=== PATIENT | female | born 1990 | race Caucasian/White ===

== ENCOUNTER 2024-03-22 14:33 | Emergency (ER) | payer MEDICAID, SELFPAY ==
--- NOTE | 2024-03-22 14:55 | PD.EDDENTL ---
ED Dental RME/HPI General Chief complaint: Dental/Oral/Throat Stated complaint: LOWER RIGHT GUM SWELLING/PAIN X 2 DAYS Time Seen by Provider: 03/22/24 14:37 Arrival date/time: 03/22/24 14:33 33-year-old female presents emergency department today complains of right lower dental pain ongoing x 2 days patient reports he has a follow-up appointment with dentist on Friday. Patient reports no fever nausea or vomiting no difficulty swallowing or breathing Limitations: no limitations Related Data Home Medications ?Medication ?Instructions ?Recorded ?Confirmed amoxicillin 500 mg-potassium 1 tab PO BID 05/31/19 05/31/19 clavulanate 125 mg tablet (Augmentin) Previous Rx's ?Medication ?Instructions ?Recorded Augmentin 500 mg-125 mg tablet 1 tab PO BID #14 tabs 05/31/19 (amoxicillin-pot clavulanate) clindamycin HCl 150 mg capsule 450 mg (3 x 150 mg) PO TID 7 days 03/22/24 #63 caps hydrocodone 5 mg-acetaminophen 325 1 tab PO BID PRN pain #8 tabs 03/22/24 mg tablet ibuprofen 800 mg tablet 800 mg PO TID PRN pain #30 tabs 03/22/24 Allergies Allergy/AdvReac Type Severity Reaction Status Date / Time NKA Allergy Unknown Uncoded 03/22/24 14:35 Review of Systems Review of Systems Systems Reviewed: All systems reviewed, normal except as documented Constitutional Constitutional: Reports system reviewed and no additional complaints, except as documented, Denies fever(s) and Denies headache(s) Eyes Eyes: Reports system reviewed and no additional complaints, except as documented and Denies blurry vision ENT Ears, Nose, Mouth, and Throat: Reports system reviewed and no additional complaints, except as documented, Reports dental pain, Reports facial pain, Denies headache(s), Denies nasal congestion and Denies nasal discharge Cardiovascular Cardiovascular: Reports system reviewed and no additional complaints, except as documented, Denies chest pain and Denies dyspnea Respiratory Respiratory: Reports system reviewed and no additional complaints, except as documented, Denies chest congestion, Denies cough and Denies dyspnea Gastrointestinal Gastrointestinal: Reports system reviewed and no additional complaints, except as documented and Denies abdominal pain Integumentary/Breasts Skin/Breast: Reports system reviewed and no additional complaints, except as documented and Denies rash Neurologic Neurologic: Reports system reviewed and no additional complaints, except as documented, Reports as per HPI and Denies headache(s) Past Medical History Past Medical History NEUROLOGIC: Negative Neurological Disorders CARDIAC: Negative Cardiac Disorders or Congestive Heart Failure RESPIRATORY: Negative Chronic Obstructive Pulmonary Disease (COPD) GASTROINTESTINAL: Negative Gastrointestinal Disorders GENITOURINARY: Negative Genitourinary Disorders or Renal Disease REPRODUCTIVE: Positive Previous Pregnancies (x5) MUSCULOSKELETAL: Negative Musculoskeletal Disorders ENDOCRINE: Negative Endocrine Disorders, Diabetes Mellitus Type 1 or Diabetes Mellitus Type 2 HEMATOLOGIC: Negative Blood Disorders OTHER HISTORY: Negative Autoimmune Disease Family History FAMILY HISTORY: Negative Family Psychiatric Problems, Family Respiratory Disorders, Family Cardiac Disorders, Family Gastrointestinal Problems, Family Cancer, Family Surgery or Family Anesthesia Reaction Surgical History SURGICAL: Positive Tonsillectomy and Tubal Ligation Social History SMOKING STATUS: Never smoker SECOND HAND EXPOSURE: No ED Exam General Limitations: Present no limitations General appearance: Present alert and in no apparent distress Head Head exam: Present atraumatic Eye Eye exam: Present normal appearance, PERRL and EOMI ENT ENT exam: Present mucous membranes moist Expanded ENT Exam Mouth exam: Absent drooling or trismus Teeth exam: Present dental caries, dental tenderness # and gingival swelling Neck Neck exam: Present normal inspection, full ROM and trachea midline Chest Chest inspection: Present normal inspection and symmetric chest wall rise Respiratory Respiratory exam: Present normal lung sounds bilaterally Cardiovascular Cardiovascular exam: Present regular rate, normal rhythm and normal heart sounds Abdominal Exam Abdominal exam: Present soft and normal bowel sounds Extremities Exam Extremities exam: Present normal inspection and full ROM Back Exam Back exam: Present normal inspection and full ROM Neurological Exam Neurological exam: Present alert, oriented X3 and CN II-XII intact Psychiatric Psychiatric exam: Present normal affect and normal mood Skin Skin exam: Present warm, dry, intact and normal color Course Quality Measures none Orders Category Date Time Status HYDROcodone*/APAP 5/325 [Provo 5/325] Med 03/22/24 14:54 Discontinued 1 tab PO X1 ONE Ibuprofen Tab [Motrin Tab] Med 03/22/24 14:54 Discontinued 600 mg PO X1 ONE Lidocaine 1% 20 ml [Xylocaine 1% 20 ML] Med 03/22/24 14:54 Discontinued 2.1 ml INFL X1 ONE cefTRIAXone [Rocephin] Med 03/22/24 14:54 Discontinued 1,000 mg IM X1 ONE Vital Signs Vital signs: Vital Signs Temperature 98.8 F 03/22/24 15:01 Pulse Rate 105 H 03/22/24 15:01 Respiratory Rate 20 03/22/24 15:01 Blood Pressure 132/95 H 03/22/24 15:01 Pulse Oximetry (%) 100 03/22/24 15:01 Oxygen Delivery Method Room Air 03/22/24 15:01 O2 saturation 100% room air within normal limits Dental / Oral MDM Narrative MDM Narrative:: 33-year-old female presents emergency department today complains of right lower dental pain ongoing x 2 days patient reports he has a follow-up appointment with dentist on Friday. Patient reports no fever nausea or vomiting no difficulty swallowing or breathing On exam patient does not appear ill or toxic patient does not appear in acute distress Patient given Rocephin here the emergency department discharged with antibiotics patient struck to follow-up with dentist on Friday as discussed for emergent concerns to return immediately Patient data External records reviewed:: [facility] previous records Clinical information provided by:: patient Social determinants that could affect healthcare access:: none Patient has the following chronic illnesses:: None How is presenting disease/condition affected by chronic disease/condition?: no chronic disease Evaluation data The following diagnostics were reviewed and interpreted by me:: other (specify) (N/A) Lab and/or radiology exams considered but not ordered:: Consider not ordered Interpretation Summary: N/A Medications / Prescriptions Medications or Prescriptions considered but not ordered:: Given Medication administrations:: Medication Administration History Discontinued Medications Hydrocodone Bitart/Acetaminophen (Hydrocodone/Apap 5/325 Tablet) 1 tab PO X1 ONE Stop: 03/22/24 14:55 Last Admin: 03/22/24 15:29 Dose: 1 tab Documented By: Ceftriaxone Sodium (Ceftriaxone Sod Inj 1,000 Mg Vial) 1,000 mg IM X1 ONE Stop: 03/22/24 14:55 Last Admin: 03/22/24 15:25 Dose: 1,000 mg Documented By: Ibuprofen (Ibuprofen Tab 600 Mg Tablet) 600 mg PO X1 ONE Stop: 03/22/24 14:55 Last Admin: 03/22/24 15:29 Dose: 600 mg Documented By: Lidocaine HCl (Lidocaine Hcl 1% 20 Ml Vial) 2.1 ml INFL X1 ONE Stop: 03/22/24 14:55 Last Admin: 03/22/24 15:29 Dose: 2.1 ml Documented By: Given given Consultations Consultation(s) initiated? (list below): No Diagnosis Dental Differential Diagnosis: gingival abscess, dental caries and dental abscess Most likely diagnosis given after review of the tests above:: Dental pain Admission Indicated Admission indicated?: not indicated Admission Request Was there a request for admission?: No Disposition Plan Disposition Plan: Discharge Discharge Attestation Discharge Attestation: The patient and all family members were given an opportunity to ask questions and understood the discharge instructions. Discharge instructions specifically effects, indications for sooner follow up or return to the emergency department, and the expected course of current diagnosis. Patient condition: Stable Discharge Plan Plan Patient Disposition: HOME (Self Care) Disposition Comment: Stable Prescriptions/Referrals Prescriptions/Med Rec: New ibuprofen 800 mg tablet 800 mg PO TID PRN (Reason: pain) Qty: 30 0RF hydrocodone-acetaminophen 5-325 mg tablet 1 tab PO BID MDD 10 PRN (Reason: pain) Qty: 8 0RF clindamycin HCl 150 mg capsule 450 mg PO TID 7 Days Qty: 63 0RF No Action amoxicillin-pot clavulanate [Augmentin] 500-125 mg Tablet 1 tab PO BID amoxicillin-pot clavulanate [Augmentin] 500-125 mg tablet 1 tab PO BID Qty: 14 0RF Problem List Clinical Impression: Dental abscess Patient/Caregiver Discharge Instructions Education Materials: Dental Abscess Additional Instructions: Please keep your dental appointment on Friday with your dentist for worsening symptoms return immediately Print Language: Icelandic Stand Alone Forms: Bailey Award Info., Work/School Release, Patient Portal Info Letter PA/WELDING MACH[employer]PERATOR [employer] Supervising Physician PA/EVARISTO Supervising Physician: Dr Hliliard
[2024-03-22 15:01] VITALS: BP 132/95; PULSE 105; RESP 20; TEMP 37.1; O2SAT 100; BMI 20.9
[2024-03-22] MEDS: cefTRIAXone SOD INJ 1,000 MG VIAL 1000 MG IM (15:25)
[2024-03-22] MEDS: HYDROcodone/APAP 5/325 TABLET 1 TAB PO (15:29)
[2024-03-22] MEDS: IBUPROFEN TAB 600 MG TABLET PO (15:29)
[2024-03-22] MEDS: LIDOCAINE HCL 1% 20 ML VIAL 2.1 ML INFL (15:29)
== END 2024-03-22 15:32 | disposition home or self-care (01) ==
PROVIDERS: Emergency Provider Emergency Medicine
DX: K04.7 Periapical abscess without sinus (principal)
CPT/HCPCS: 96372; 99283; J0696; J3490; A9270